=== PATIENT | female | born 1960 | race Caucasian/White ===

== ENCOUNTER 2025-03-20 12:47 | Emergency (ER) | payer BC ==
[~2025-03-20] VITALS: Ht 167.6 cm; Wt 89.7 kg
[2025-03-20] MEDS ORDERED: ESCI5SOL3 PO (13:32)
[2025-03-20] MEDS ORDERED: LISI30TA4 PO (13:32)
[2025-03-20] MEDS ORDERED: MONT-5 PO (13:32)
[2025-03-20] MEDS ORDERED: TOPR25TA PO (14:07)
[2025-03-20] MEDS ORDERED: LEXA1TAB PO (14:07)
[2025-03-20] MEDS ORDERED: RABE1TAB5 PO (14:07)
[2025-03-20] MEDS ORDERED: HOME MED LIST COMPLETE! XX SCH (14:10)
[2025-03-20] MEDS: LIDOCAINE 1% MDV 20 ML VIAL SC ONE (14:15)
[2025-03-20] MEDS: TETANUS/DIPHTH/ACEL. PERTUSSIS 0.5 ML SYR IM.IMMUN ONE (14:35)
[2025-03-20 16:09] VITALS: BP 160/94; TEMP 98.7; O2SAT 100
== END 2025-03-20 16:19 | disposition home or self-care (01) ==
LOC: M ED 12:47
DX: S61.411A Laceration without foreign body of right hand, initial encounter (principal); W25.XXXA Contact with sharp glass, initial encounter; Y92.009 Unspecified place in unspecified non-institutional (private) residence as the place of occurrence of the external cause; Y93.9 Activity, unspecified; Y99.9 Unspecified external cause status